=== PATIENT | female | born 1940 | race Caucasian/White ===

== ENCOUNTER → 2016-11-10 | Outpatient (CLI) | payer OTHER, MEDICARE ==
[~2016-11-10] VITALS: Ht 160 cm; Wt 70.3 kg
[~2016-11-10] MED LIST: ASPIR-LOW81 MG PO; COMBIGAN EYE DR10 ML OPHTHALMIC; DUREZOL5 ML OPHTHALMIC; IBUPROFEN 200200 M1 PO; KLOR-CON 10 ER10 MEQ PO; LEVOTHYROXIN0.112 M1 PO; MAXZIDE-25 MG1 EACH PO; NEVANAC3 ML OPHTHALMIC
--- NOTE | ~2016-11-10 | S ---
[facility] [place] [address] SURGICAL PATH RPT PROCEDURE Name: KAREN BOO Room #: REG [facility] Pam.#: [id number] Admission: 11/10/16 Date of : 36 Discharge: Report #: [id number] Path Case #: [id number] PATHOLOGY REPORT COLLECTION DATE: 11/10/2016 RECEIVED DATE: 11/10/2016 SUBMITTING PHYS: Dr. Sukhwinder Petty OTHER PHYS: Dr. Ozzy Huerta SPECIMEN(S) RECEIVED: A.Polyp at proximal descending colon * * * * * * * * * * * * FINAL DIAGNOSIS: Colon, proximal descending, biopsy: - Hyperplastic polyp. (SKM:mgr; 11/13/2016) PATHOLOGIST: Josué Guerrero M.D. REPORT ELECTRONICALLY SIGNED BY: Josué Guerrero M.D. DATE/TIME: 11/13/2016 15:40 * * * * * * * * * * * * GROSS PATHOLOGY: Received in formalin labeled "Karen Boo, polyp at proximal descending colon," is a segment of ewing soft tissue measuring 0.5 cm in maximum dimension. The specimen is submitted entirely in cassette A1. ([facility]; 11/11/2016) CLINICAL HISTORY: Pre-op dx: History of colon polyps Post-op dx: Colon polyp INITIAL CPT CODE(S): A; 00520 Professional services performed by [facility] at [facility] [address] [place], [place] [address] Technical services performed by [facility] at [address] [place] [address]., [address], [place] [address]. [facility] [address] [place] [address] SURGICAL PATH RPT PROCEDURE Name: KAREN BOO Room #: REG RAUL Lara#: [id number] Admission: 11/10/16 Date of : 36 Discharge: Report #: [id number] Path Case #: [id number] [facility] [address] [address] PHONE: [phone] DIRECTOR: Bridger Thompson M.D. * * * END OF REPORT * * *
== END | disposition home or self-care (01) ==
LOC: GI 07:40
DX: K63.5 Polyp of colon (principal); I10 Essential (primary) hypertension; E03.9 Hypothyroidism, unspecified; H40.89 Other specified glaucoma; Z86.73 Personal history of transient ischemic attack (TIA), and cerebral infarction without residual deficits; Z98.890 Other specified postprocedural states; Z79.899 Other long term (current) drug therapy; Z88.8 Allergy status to other drugs, medicaments and biological substances; Z79.82 Long term (current) use of aspirin
CPT/HCPCS: 62110; 62900